=== PATIENT | female | born 1950 | race Caucasian/White ===

== ENCOUNTER 2017-07-26 05:48 | Day surgery (SDC) | payer MEDICARE, OTHER ==
[~2017-07-26 05:48] MED LIST: Buffered Lidocaine 0.9% SYRIN* 5 ML/SYR SYRINGE INTRADERM ONE
[2017-07-26] MEDS ORDERED: Buffered Lidocaine 0.9% SYRIN* 5 ML/SYR SYRINGE ONE (06:00)
[2017-07-26] MEDS ORDERED: Bupivacaine 0.25% SDV* 30 ML ONE (07:28)
[2017-07-26] MEDS ORDERED: Propofol* 10 MG/ML 20 ML BTL IV PUSH ONE (07:34)
[2017-07-26] MEDS ORDERED: fentaNYL* 50 MCG/ML 2 ML VIAL (100 MCG VIAL) ONE ×2 (07:34→09:42)
[2017-07-26] MEDS ORDERED: ceFAZolin 2 GM PREMIX (*) 0 GM/0 ML BAG IVPB ONE (07:34)
[2017-07-26] MEDS ORDERED: Midazolam* 1 MG/ML 5 ML VIAL (5 MG) ONE (07:35)
[2017-07-26] MEDS ORDERED: Scopolamine 1.5 mg* PATCH ONE (07:45)
[2017-07-26] MEDS ORDERED: Succinylcholine* 20 MG/ML 10 ML VIAL ONE (08:16)
[2017-07-26] MEDS ORDERED: Dexamethasone IV* 4 MG/ML 1 ML (4 MG) ONE (08:17)
[2017-07-26] MEDS ORDERED: Atracurium* 10 MG/ML 10 ML VIAL ONE (08:20)
[2017-07-26] MEDS ORDERED: fentaNYL* 50 MCG/ML 2 ML VIAL (100 MCG VIAL) IV PRN (08:33)
[2017-07-26] MEDS ORDERED: Ondansetron INJ* 2 MG/ML VIAL IV PRN (08:33)
[2017-07-26] MEDS ORDERED: DiMENhydriNATE IV* 50 MG/ML VIAL IV PUSH PRN (08:33)
[2017-07-26] MEDS ORDERED: HYDROcodone/ACETAMIN 5-325 MG* 1 TAB PO PRN (08:33)
[2017-07-26] MEDS ORDERED: oxyCODONE TAB* 5 MG TAB PO PRN (08:33)
[2017-07-26] MEDS ORDERED: HYDROmorphone INJ* 1 MG/ML CARPUJECT SYRINGE IV PRN (08:33)
[2017-07-26] MEDS ORDERED: Ketorolac INJ* 30 MG/ML 1 ML VIAL ONE (08:57)
[2017-07-26] MEDS ORDERED: Ondansetron INJ* 2 MG/ML VIAL ONE ×2 (08:57→09:42)
[2017-07-26] MEDS ORDERED: Neostigmine Methylsulfate* 2 MG/2 ML SYRINGE ONE (09:01)
[2017-07-26] MEDS ORDERED: Glycopyrrolate IV* 0.2 MG/ML 1 ML VIAL ONE (09:01)
--- NOTE | 2017-07-26 09:16 | PN ---
Progress Note - Progress Note Date of Service: 07/26/17 Note: Brief Operative Note: Preop Dx: morbid obesity; s/p Lap Band placement Postop Dx: same Procedure: Laparoscopic removal of Lap Band and sc components Anesthesia: GET Surgeon: Fredrick Asst: ROLDAN Jenkins Fluids: 1900 ml RL Drains: none Specimen: none Findings: dictated
[2017-07-26] MEDS ORDERED: DiMENhydriNATE IV* 50 MG/ML VIAL ONE (09:34)
[2017-07-26 10:56] VITALS: BP 102/60
--- NOTE | 2017-07-27 04:59 | OP ---
CC: Nena Zuleta RPA * DATE OF OPERATION: 07/26/17 - SDS DATE OF : 54 SURGEON: Andrews Alcala MD CADDYMASTER: ROLDAN Roberson ANESTHESIOLOGIST: Mitch Guevara MD ANESTHESIA: General endotracheal. PRE-OP DIAGNOSIS: Morbid obesity, status post Lap-Band placement. POST-OP DIAGNOSIS: Morbid obesity, status post Lap-Band placement. OPERATIVE PROCEDURE: Laparoscopic removal of Lap-Band and subcutaneous components. ESTIMATED BLOOD LOSS: Minimal. IV FLUIDS: 1.9 L of crystalloid. SPECIMEN: None. DRAINS: None. COMPLICATIONS: None. COUNTS: The instrument, needle, and sponge counts were correct. DESCRIPTION OF PROCEDURE: The patient was brought to the operating room and placed on the table supine. Sequential compression devices were placed on both lower extremities. General anesthesia was administered. The patient was positioned and padded appropriately. She received appropriate antibiotics. She was prepped and draped in the usual sterile fashion and time-out was performed. Local anesthetic was infiltrated into the skin and soft tissue prior to making each incision. The entry to the abdomen was through the previous scar where a subcutaneous port was and after incising the skin, the subcutaneous tissues were divided with the cautery down to the level of the port which was subsequently excised from the capsule and then the band was traced to the insertion point of the abdominal wall. Through this site, an optical trocar, size 5 mm, was placed and then carbon dioxide was insufflated into the abdomen to pressure of 15 mmHg. Under direct visualization, a 5-mm trocar was placed in the left upper quadrant and a 5- mm trocar placed in the right upper quadrant. The initial trocar placed was a 12-mm trocar. The tubing of the band was followed beneath the liver to the point where the band was identified. The buckle of the band was enrobed in fat from the lesser omentum and cautery was used to dissect this free to free the buckle and then the band was able to be released. The buckle itself was then excised with scissors and then the band was removed from the retrogastric tunnel. The tubing was divided and the band port was handed off and then the tubing was sent back into the abdominal cavity and withdrawn through the 12-mm port site along with the band. Inspection then revealed hemostasis to be excellent and the ports were removed under direct visualization and carbon dioxide was released. The fascial defect was closed with 0 Vicryl in interrupted figure-of-8 fashion. The subcutaneous tissues were inspected. Hemostasis was assured. The skin was closed with 4-0 Monocryl in subcuticular fashion. Steri-Strips were applied. The patient tolerated the procedure well, was extubated and transferred to recovery room in stable condition. [id number] #: [id number]
== END 2017-08-19 12:20 | disposition home or self-care (01) ==
LOC: OR 05:48
PROVIDERS: ATTEND Surgery
DX: Z98.84 Bariatric surgery status (principal); E66.01 Morbid (severe) obesity due to excess calories; R13.10 Dysphagia, unspecified; K21.9 Gastro-esophageal reflux disease without esophagitis; K58.9 Irritable bowel syndrome, unspecified; I10 Essential (primary) hypertension; F41.8 Other specified anxiety disorders; H91.90 Unspecified hearing loss, unspecified ear; G47.33 Obstructive sleep apnea (adult) (pediatric); J45.909 Unspecified asthma, uncomplicated
CPT/HCPCS: A9270-GY; J0330; J0690; J1100; J1240; J1885; J2250; J2405; J2704; J3010